=== PATIENT | female | born 1975 | race African-American/Black ===

== ENCOUNTER 2019-05-29 10:11 | Outpatient (CLI) | payer MEDICARE, MEDICAID ==
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
== END 2019-05-29 10:12 | disposition home or self-care (01) ==
LOC: BICRAD 10:11
PROVIDERS: ATTEND Nurse Practitioner Family
DX: M79.671 Pain in right foot (principal); M19.071 Primary osteoarthritis, right ankle and foot; M77.31 Calcaneal spur, right foot